=== PATIENT | male | born 1995 | race Caucasian/White ===

== ENCOUNTER → 2018-05-07 03:34 | Emergency (ER) | payer BC ==
[~2018-05-07 03:34] MED LIST: Dicyclomine CAP* 10 MG PO ONE; Diphenoxylat/Atrop 2.5-0.025M* 1 TAB PO ONE; Metoclopramide IV* 5 MG/ML 2 ML VIAL IV SLOW PU ONE; Morphine VIAL* 10 MG/ML 1 ML VIAL IV ONE
--- NOTE | 2018-05-07 03:57 | ED ---
Abdominal Pain/Male - HPI Summary HPI Summary: Pt is a 22 y/o M presenting to the ED with a chief complaint of diffuse abd pain onset about 7 hours ago. He states he had chicken speedy for dinner that he bought. The pt reports nausea, vomiting, and diarrhea. His last episode of diarrhea was about 1 hour ago. The pt denies fever. - History of Current Complaint Chief Complaint: EDAbdPain Stated Complaint: ABD PAIN- PER PATIENT Time Seen by Provider: 05/07/18 03:53 Hx Obtained From: Patient Onset/Duration: Sudden Onset, Lasting Hours, Still Present Timing: Constant, Lasting Hours Severity Initially: Severe Severity Currently: Severe Pain Intensity: 8 Pain Scale Used: 0-10 Numeric Location: Diffuse Radiates: No Character: Cramping Aggravating Factor(s): Nothing Alleviating Factor(s): Nothing Associated Signs And Symptoms: Positive: Nausea, Vomiting, Diarrhea. Negative: Fever - Allergies/Home Medications Allergies/Adverse Reactions: Allergies Allergy/AdvReac Type Severity Reaction Status Date / Time No Known Allergies Allergy Verified 05/07/18 03:37 PMH/Surg Hx/FS Hx/Imm Hx Previously Healthy: Yes Endocrine/Hematology History: Denies: Hx Diabetes Cardiovascular History: Denies: Hx Hypotension Infectious Disease History: No Infectious Disease History: Denies: Traveled Outside the [place] in Last 30 Days - Family History Known Family History: Negative: Renal Disease, Blood Disorder - Social History Alcohol Use: None Hx Substance Use: Yes Substance Use Type: Reports: Marijuana Hx Tobacco Use: Yes Smoking Status (MU): Former Smoker Review of Systems Negative: Fever Positive: Abdominal Pain, Vomiting, Diarrhea, Nausea All Other Systems Reviewed And Are Negative: Yes Physical Exam - Summary Physical Exam Summary: VITAL SIGNS: Reviewed. GENERAL: Patient is a well-developed and nourished male who is lying comfortable in the stretcher. Patient is not in any acute respiratory distress. HEAD AND FACE: No signs of trauma. No ecchymosis, hematomas or skull depressions. No sinus tenderness. EYES: PERRLA, EOMI x 2, No injected conjunctiva, no nystagmus. EARS: Hearing grossly intact. Ear canals and tympanic membranes are within normal limits. MOUTH: Oropharynx within normal limits. NECK: Supple, trachea is midline, no adenopathy, no JVD, no carotid bruit, no c- spine tenderness, neck with full ROM. CHEST: Symmetric, no tenderness at palpation LUNGS: Clear to auscultation bilaterally. No wheezing or crackles. CVS: Regular rate and rhythm, S1 and S2 present, no murmurs or gallops appreciated. ABDOMEN: Soft, non-tender. No signs of distention. No rebound no guarding, and no masses palpated. Bowel sounds are normal. EXTREMITIES: FROM in all major joints, no edema, no cyanosis or clubbing. NEURO: Alert and oriented x 3. No acute neurological deficits. Speech is normal and follows commands. SKIN: Dry and warm Triage Information Reviewed: Yes Vital Signs On Initial Exam: Initial Vitals Temp Pulse Resp BP Pulse Ox 98.6 F 62 20 143/77 100 05/07/18 03:35 05/07/18 03:35 05/07/18 03:35 05/07/18 03:35 05/07/18 03:35 Vital Signs Reviewed: Yes Diagnostics - Vital Signs Vital Signs Temp Pulse Resp BP Pulse Ox 05/07/18 03:45 55 100 05/07/18 03:43 53 151/93 100 05/07/18 03:35 98.6 F 62 20 143/77 100 - Laboratory Result Diagrams: 05/07/18 04:00 05/07/18 04:00 Lab Statement: Any lab studies that have been ordered have been reviewed, and results considered in the medical decision making process. Re-Evaluation - Re-Evaluation 1st re-eval Re-Evaluation Time: 05:45 Change: Improved Comment: Pt states he feels better and is agreeable to being discharged. Abdominal Pain Male Course/Dx - Course Course Of Treatment: Pt is a 22 y/o M presenting to the ED with a chief complaint of diffuse abd pain onset about 7 hours ago. He states he had chicken speedy for dinner that he bought. The pt reports nausea, vomiting, and diarrhea. His last episode of diarrhea was about 1 hour ago. The pt denies fever. As of 544, the pt feels better. He will be d/c'ed home with a dx of gastroenteritis and instructions to f/u with his PCP in the next 2-3 days. - Diagnoses Provider Diagnoses: Gastroenteritis Discharge - Sign-Out/Discharge Documenting (check all that apply): Patient Departure Patient Received Moderate/Deep Sedation with Procedure: No - Discharge Plan Condition: Stable Disposition: HOME Prescriptions: Dicyclomine CAP* [Bentyl CAP*] 10 mg PO TID PRN #20 cap PRN Reason: Pain Metoclopramide TAB* [Reglan TAB*] 10 mg PO Q6H PRN #20 tab PRN Reason: Nausea/Vomiting Referrals: [facility] [place] [facility] [place] [facility] [Outside] Additional Instructions: Please follow up with your primary care physician in 2-3 days. Return to the emergency department with any new or worsening symptoms. - Billing Disposition and Condition Condition: STABLE Disposition: Home - Attestation Statements Document Initiated by [employer]: Yes Documenting Scribe: Radha Colindres Provider For Whom Mikael is Documenting (Include Credential): Miky Griffith MD. Scribe Attestation: Radha Loera scribed for Miky Griffith MD. on 05/07/18 at 0553. Scribe Documentation Reviewed: Yes Provider Attestation: The documentation as recorded by the Radha nava accurately reflects the service I personally performed and the decisions made by Antoinette bill MD. Status of Scribe Document: Viewed
[2018-05-07] MEDS: NS 0.9% 1000 ML** 2,000 ML IV ONE (04:06)
[2018-05-07 04:11] LABS: ABS Basophils 0 10^3/ul (0-0.2); ABS Eosinophils 0 10^3/ul (0-0.6); ABS Lymphocytes 1.3 10^3/ul (1.0-4.8); ABS Monocytes 0.7 10^3/ul (0-0.8); ABS Neutrophils 13.3 10^3/ul (1.5-7.7); ABS Nucleated RBC 0 10^3/ul; Eosinophil % 0.1 %; Hematocrit 44 % (42-52); Hemoglobin 14.7 g/dl (14.0-18.0); Lymphocyte % 8.3 %; Mean Corpuscular HGB Conc 34 g/dl (31-36); Mean Corpuscular Hemoglobin 29 pg (27-31); Mean Corpuscular Volume 85 fL (80-94); Mean Platelet Volume 7.5 fL (7.4-10.4); Nucleated Red Blood Cells % 0; Platelet Count 284 10^3/ul (150-450); Red Blood Count 5.15 10^6/ul (4.00-5.40); Red Cell Distribution Width 13 % (10.5-15); White Blood Count 15.3 10^3/ul (3.5-10.8)
[2018-05-07 04:27] LABS: Albumin 4.6 g/dL (3.2-5.2); Albumin/Globulin Ratio 1.8 (1-3); BUN/Creatinine Ratio 13.3 (8-20); C Reactive Protein 1.49 mg/L (<8.01); Calcium 9.6 mg/dL (8.6-10.3); EGFR African American 113.7 (>60); Globulin 2.6 g/dL (2-4); Potassium 3.5 mmol/L (3.5-5.0); Total Bilirubin 0.4 mg/dL (0.2-1.0); Total Protein 7.2 g/dL (6.4-8.9)
[2018-05-07 05:51] VITALS: BP 142/95
== END | disposition home or self-care (01) ==
LOC: ED 03:34
DX: K52.9 Noninfective gastroenteritis and colitis, unspecified (principal); Z87.891 Personal history of nicotine dependence
CPT/HCPCS: 36415; 80053; 82150; 83690; 85025; 86140; 96374; 96375; 99283; A9270-GY; J2270; J2765